=== PATIENT | female | born 1955 | race American Indian/Alaskan Native ===

== ENCOUNTER 2017-08-19 12:10 | Emergency (ER) | payer OTHER ==
[2017-08-19 12:23] VITALS: TEMP 98.8; BMI 26.5
--- NOTE | 2017-08-19 12:55 | PDOC ---
History of Present Illness - General Chief Complaint: Chest Pain Stated Complaint: CHEST DISCOMFORT Time Seen by Provider: 08/19/17 12:52 History Source: Patient, Family Exam Limitations: No Limitations - History of Present Illness Initial Comments: 08/19/17 13:08 62F with pmh of dm2 and hyperlipidemia presents to the Ed with onn/off chest pain for the past 3 days, progressive onset. The pain is midsternal, 7-8/10, non -radiating, reproducible on palpation and increasing with exertion. She has never had that kind of pain before. She is followed her PCP Dakota Peña and her english teacher Dr. Kumar who gave her a stress test last year as part of a routine check up. Patient states that she hasn't been taking her statins for the past 3 months. Denies shortness of breath, diaphoresis. 08/19/17 13:16 08/19/17 13:17 08/19/17 15:11 Past History - Past Medical History Allergies/Adverse Reactions: Allergies Allergy/AdvReac Type Severity Reaction Status Date / Time No Known Allergies Allergy Verified 08/19/17 12:23 Home Medications: Ambulatory Orders Aspirin [ASA -] 81 mg PO DAILY 08/19/17 Atorvastatin Calcium 10 mg PO DAILY 08/19/17 Glimepiride [Amaryl -] 2 mg PO DAILY 08/19/17 COPD: No Diabetes: Yes Hypercholesterolemia: Yes - Surgical History Cholecystectomy: Yes - Suicide/Smoking/Psychosocial Hx Smoking History: Never smoked Review of Systems - Review of Systems Able to Perform ROS?: Yes Is the patient limited Icelandic proficient: No Constitutional: No: Symptoms Reported HEENTM: No: Symptoms Reported Respiratory: No: Symptoms reported Cardiac (ROS): Yes: See HPI ABD/GI: No: Symptoms Reported : No: Symptoms Reported Musculoskeletal: Yes: Other (reports chronic left shoulder pain for years.) Integumentary: No: Symptoms Reported Neurological: No: Symptoms reported Endocrine: No: Symptoms Reported All Other Systems: Reviewed and Negative *Physical Exam - Vital Signs Last Vital Signs Temp Pulse Resp BP Pulse Ox 98.8 F 86 18 136/76 98 08/19/17 12:22 08/19/17 13:26 08/19/17 12:22 08/19/17 12:22 08/19/17 13:26 - Physical Exam General Appearance: Yes: Nourished, Appropriately Dressed. No: Apparent Distress HEENT: positive: EOMI, JOSHUA, Normal ENT Inspection Respiratory/Chest: positive: Chest Tender (mid-sternum) Cardiovascular: positive: Regular Rhythm, Regular Rate, S1, S2 Gastrointestinal/Abdominal: positive: Normal Bowel Sounds, Flat, Soft. negative : Tender Integumentary: positive: Normal Color, Dry, Warm Neurologic: positive: Fully Oriented, Alert, Normal Mood/Affect Heart Score/ECG Review - History History: Slightly suspicious - Electrocardiogram EKG: Normal - Age Age: 45-65 - Risk Factors Risk Factors Heart Score: Yes Hx Hypercholesterolemia, Yes Hx Diabetes Based on the list above the patient has:: 1-2 risk factors - Troponin Troponin: </= normal limit - Score Heart Score - Total: 2 ED Treatment Course - LABORATORY CBC & Chemistry Diagram: 08/19/17 13:20 08/19/17 13:20 - ADDITIONAL ORDERS Additional order review: Laboratory Results 08/19/17 08/19/17 13:20 13:20 Sodium 140 Potassium 4.2 Chloride 103 Carbon Dioxide 28 Anion Gap 9 BUN 9 Creatinine 0.7 Creat Clearance w eGFR > 60 Random Glucose 127 H Calcium 10.2 H Total Bilirubin 0.2 AST 33 ALT 39 Alkaline Phosphatase 88 Creatine Kinase 143 Troponin I < 0.02 Total Protein 7.8 Albumin 3.8 08/19/17 13:20 RBC 5.84 H MCV 72.4 L MCHC 31.6 L RDW 15.4 MPV 8.9 Neutrophils % 56.1 Lymphocytes % 33.3 Monocytes % 8.5 Eosinophils % 1.6 Basophils % 0.5 - RADIOLOGY Radiology Studies Ordered: Category Date Time Status CHEST PA & LAT [RAD] Stat Radiology 08/19/17 14:08 Completed - Medications Given in the ED: ED Medications Discontinued Medications Generic Name Dose Route Start Last Admin Trade Name Freq PRN Reason Stop Dose Admin Aspirin 325 mg 08/19/17 13:06 08/19/17 13:23 Asa - PO 08/19/17 13:07 325 mg ONCE ONE Administration Famotidine 20 mg in 12 mls @ 144 mls/hr 08/19/17 14:58 08/19/17 15:06 Pepcid 20 Mg/12 Ml Push IVPUSH 08/19/17 15:02 144 mls/hr NOW ONE Administration Ketorolac Tromethamine 15 mg 08/19/17 14:57 08/19/17 15:06 Toradol Injection - IVPUSH 08/19/17 14:58 15 mg ONCE ONE Administration Medical Decision Making - Medical Decision Making 08/19/17 13:21 Basic labs +cardiac panel pending. Aspiring given. EKG Normal sinus rhythm, normal EKG CXR , negative 08/19/17 15:08 Patient received Toradol and pepcid. compilation clerk for Dr. Duncan ok with us discharging the patient without second set of troponin. Will follow up on Monday in the office. 08/19/17 15:11 *DC/Admit/Observation/Transfer Diagnosis at time of Disposition: Costochondritis, acute - Discharge Dispostion Disposition: HOME Condition at time of disposition: Good Admit: No - Referrals - Patient Instructions Printed Discharge Instructions: DI for Atypical Chest Pain Additional Instructions: Follow up with Dr. Duncan on Monday. Come back to the ER for any new, concerning or worsening symptom. - Post Discharge Activity
--- NOTE | 2017-08-19 12:57 | PDOC ---
Attending Attestation - HPI HPI: 08/19/17 13:54 The patient is a 62 year old female with a significant PMH of diabetes and hyperlipidemia who presents to the emergency department with intermittent chest pains beginning approximately 3 days ago. She describes the pain as localized in the midsternal region with no radiation, about 8/10 in severity which is aggravated by exertion. Allergies: NKA PCP: Dr. Duncan Baker Chef: Dr. Kumar <Crescencio Fink - Last Filed: 08/19/17 13:54> - Resident Resident Name: [email or web address] - HPI HPI: I, Dr. Tashia Zamora, attest that the scribes documentation that appears above has been prepared under my direction and personally reviewed by me. I confirmed that the note above accurately reflects all work, treatment, procedures, and medical decision-making performed by me. 08/19/17 15:28 08/19/17 15:28 Pt is allert and oriened x3, non toxic appearing and not in any acute distress Lungs: + bs johan cta Heart: s1s2 regular Abd: + bs abd soft no guarding or tenderness ext: no edema, nl pulses - Physicial Exam PE: 08/21/17 08 General: Pt is non toxic appearing, alert andf oriented x3 Lungs: + bs johan cta Heart: S1S2 regular Abd:+ bs abd soft nontender ni guarding or tenderness Neuro: alert and oriented x3, no focal deficts - Medical Decision Making 08/19/17 15:32 62 y/o female with 3 days of chest wall pain that is reproducibel, no sob on exertion, pt is non toxic appearing, troponin is negativem ekg no acute infiltarte, pt was given asa before labs resulted and is feeling a little better , will give dose of toradol and pepcid and evaluate for dc home. case discussed with Dr Bray physician covering for PCP, pt stabe for dc home with out pt f/u in office in te next 48-72hrs. PT and daughter agree with this d cplan,Pt with symptoms suggestive of costochondritis 08/21/17 08:57 <Tashia Zamora - Last Filed: 08/21/17 08:59>
[2017-08-19] MEDS ORDERED: ASPIRIN 325 MG TABLET PO ONE (13:06)
[2017-08-19] MEDS ORDERED: ASPIRIN 325 MG TABLET ONE (13:13)
[2017-08-19 13:27] LABS: BASO % 0.5 % (0-2.0); EOS % 1.6 % (0-4.5); HEMATOCRIT 42.3 % (32.4-45.2); HEMOGLOBIN 13.3 GM/dL (10.7-15.3); LYMPH % 33.3 % (8-40); MCH 22.9 pg (25.7-33.7); MCHC 31.6 g/dl (32.0-36.0); MEAN CELL VOLUME 72.4 fl (80-96); MEAN PLT VOLUME 8.9 fl (7.5-11.1); MONO % 8.5 % (3.8-10.2); NEUT % 56.1 % (42.8-82.8); PLATELET COUNT 287 K/MM3 (134-434); RBC 5.84 M/mm3 (3.60-5.2); RDW 15.4 % (11.6-15.6); WHITE BLOOD COUNT 10.6 K/mm3 (4.0-10.0)
[2017-08-19 13:51] LABS: ALBUMIN 3.8 g/dl (3.4-5.0); ANION GAP 9 (8-16); BILIRUBIN,TOTAL 0.2 mg/dL (0.2-1.0); BLOOD UREA NITROGEN 9 mg/dL (7-18); CALCIUM 10.2 mg/dL (8.5-10.1); CHLORIDE 103 mmol/L (98-107); CO2 28 mmol/L (21-32); CREATININE 0.7 mg/dL (0.55-1.02); GLUCOSE,RANDOM 127 mg/dL (74-106); SGPT/ALT 39 U/L (12-78); SODIUM 140 mmol/L (136-145); TOT PROT 7.8 g/dl (6.4-8.2)
[2017-08-19 13:52] LABS: ALK PHOS 88 U/L (45-117)
[2017-08-19 13:53] LABS: POTASSIUM 4.2 mmol/L (3.5-5.1); SGOT/AST 33 U/L (15-37)
[2017-08-19] MEDS ORDERED: KETOROLAC TROMETHAMINE 15 MG/ML VIAL IVPUSH ONE (14:57)
[2017-08-19] MEDS ORDERED: FAMOTIDINE IV 20 MG/12 ML VIAL IVPUSH ONE (14:58)
[2017-08-19] MEDS ORDERED: FAMOTIDINE 20 MG/50 ML IVPB 20 MG/50 ML MG IVPB ONE (15:01)
[2017-08-19] MEDS ORDERED: KETOROLAC TROMETHAMINE 15 MG/ML VIAL ONE (15:01)
[2017-08-19 15:08] VITALS: PULSE 76
[2017-08-19 15:10] VITALS: BP 138/77
--- NOTE | 2017-08-20 11:41 | EKG ---
Test Reason : Blood Pressure : / mmHG Vent. Rate : 086 BPM Atrial Rate : 086 BPM P-R Int : 162 ms QRS Dur : 072 ms QT Int : 376 ms P-R-T Axes : 047 011 046 degrees QTc Int : 449 ms NORMAL SINUS RHYTHM NORMAL ECG NO PREVIOUS ECGS AVAILABLE Confirmed by MD HOPE, PACO ([id number]) on 08/20/2017 11:41:13 AM Referred By: Confirmed By:PACO ARNETT MD
== END 2017-08-19 15:19 | disposition home or self-care (01) ==
LOC: JER 12:10
PROC: 3E033GC Introduction of Other Therapeutic Substance into Peripheral Vein, Percutaneous Approach (ICD-10-PCS; principal; 2017-08-19)
PROC: 3E0333Z Introduction of Anti-inflammatory into Peripheral Vein, Percutaneous Approach (ICD-10-PCS; 2017-08-19)
DX: M94.0 Chondrocostal junction syndrome [Tietze] (principal); E11.9 Type 2 diabetes mellitus without complications; Z79.84 Long term (current) use of oral hypoglycemic drugs; E78.00 Pure hypercholesterolemia, unspecified
CPT/HCPCS: 36415; 71046-TC; 80053; 82550; 84484; 85025; 93005; 93010; 99284-25